=== PATIENT | male | born 2000 | race African-American/Black ===

== ENCOUNTER 2022-09-26 18:24 | Emergency (ER) | payer BC ==
[~2022-09-26] VITALS: Ht 185.4 cm; Wt 64.9 kg
[2022-09-26] MEDS ORDERED: IBUPROFEN 600MG TAB PO ONE (19:35)
[2022-09-26 21:55] VITALS: BP 138/73
[2022-09-26] MEDS ORDERED: BENZ200C70 PO (21:55)
[2022-09-26] MEDS ORDERED: IBUP-1022 PO (21:55)
== END 2022-09-26 22:03 | disposition home or self-care (01) ==
LOC: M ED 18:24
DX: J06.9 Acute upper respiratory infection, unspecified (principal)